=== PATIENT | female | born 1970 | race Caucasian/White ===

== ENCOUNTER 2017-04-23 07:45 | Day surgery (SDC) | payer BC ==
[~2017-04-23] VITALS: Ht 175.3 cm; Wt 84.5 kg
[~2017-04-23 07:45] MED LIST: ACEBUTCAFT PO; ADVIL100 MG PO; ALBU.083IS; ALBU90OI; ALBU90OI6; ALBU90OI6 INH; ALBUIS; ALBUTEROL; ASPI81CH; ASPI81EC; AZIT500 PO; BENZ100A PO; Bactrim Ds Tab1 EACH PO; CIPR250 PO; CIPR500 PO; CIPR750 PO; CLON1; CROMOI; DIAZ10 PO; DIVA500EC; FENO67; FISH1000 PO; FLUSAL1005 IH; FLUSAL5005; FLUT44OIA; FLUV50 PO; FOLI1; GEMF600; HYDACE5 PO; HYDR-86; IBUP800; IBUP800 PO; IPRATROPIUM; LAMO100; LAMO100 PO; LAMO25; LISI10; LOVA20; LOVA40; METF500; METPRE4DP PO; METR250; METR500 PO; MOMENI; MONT10T; MONT10T PO; MULVITMINF PO; NAPR550 PO; OXYACE5T PO; OXYACE7.5T PO; OXYC1TAB11; PHENA200 PO; PRED10; PROCODE120 PO; PROM50S PR; RANI150 PO; RXOXYACE PO; RXPHEN200 PO; RXPROCODSY PO; RXSULTRIDS PO; SULTRIDS PO; SUMA25 PO; TAMS.4ER PO; TOPI100 PO; VYTORIN; Ventolin/Prove6.7 GM; ZOLP10; ZOLP5 PO
== END 2017-04-23 10:34 | disposition home or self-care (01) ==
LOC: ORSCSDS 07:45
PROVIDERS: Internal Medicine Gastroenterology
PROC: 0DBN8ZX Excision of Sigmoid Colon, Via Natural or Artificial Opening Endoscopic, Diagnostic (ICD-10-PCS; principal; 2017-04-23 09:00)
PROC: 0DBP8ZX Excision of Rectum, Via Natural or Artificial Opening Endoscopic, Diagnostic (ICD-10-PCS; principal; 2017-04-23 09:00)
DX: R10.32 Left lower quadrant pain (principal); D12.5 Benign neoplasm of sigmoid colon; K62.1 Rectal polyp; K57.30 Diverticulosis of large intestine without perforation or abscess without bleeding; K64.8 Other hemorrhoids; K59.00 Constipation, unspecified; Z83.71 Family history of colonic polyps; R11.0 Nausea; F32.9 Major depressive disorder, single episode, unspecified; E11.9 Type 2 diabetes mellitus without complications; J45.909 Unspecified asthma, uncomplicated; F17.210 Nicotine dependence, cigarettes, uncomplicated; Z79.899 Other long term (current) drug therapy
CPT/HCPCS: 88305; J3010

== ENCOUNTER → 2017-08-06 | Outpatient (CLI) | payer BC | END | disposition home or self-care (01) | LOC: LAB 13:56 → LAB SHORT 13:56 | DX: L08.9 Local infection of the skin and subcutaneous tissue, unspecified (principal) | CPT/HCPCS: 87070; 87205 ==

== ENCOUNTER 2018-12-03 10:52 | Emergency (ER) | payer BC ==
[~2018-12-03] VITALS: Ht 175.3 cm; Wt 88.5 kg
[2018-12-03 11:42] LABS: BASOPHILS ABSOLUTE AUTO 0.05 K/mm3 (0.00-0.23); BASOPHILS PERCENT AUTO 1 % (0-2); EOSINOPHILS ABSOLUTE AUTO 0.24 K/mm3 (0.00-0.68); EOSINOPHILS PERCENT AUTO 2 % (0-6); Hematocrit 45.7 % (33.0-51.0); Hemoglobin 15.4 g/dL (11.5-16.0); IMMATURE GRAN ABSOLUTE AUTO 0.08 K/mm3 (0.00-0.10); IMMATURE GRAN PERCENT AUTO 1 % (0-1); LYMPHOCYTES ABSOLUTE AUTO 3.07 K/mm3 (0.84-5.20); LYMPHOCYTES PERCENT AUTO 29 % (21-46); MONOCYTES ABSOLUTE AUTO 0.74 K/mm3 (0.16-1.47); MONOCYTES PERCENT AUTO 7 % (4-13); Mean Corpuscular HGB Conc 33.7 g/dL (31.5-36.5); Mean Corpuscular Volume 92 fL (80-100); Mean Platelet Volume 10.2 fL (9.1-12.4); NEUTROPHILS PERCENT AUTO 61 % (41-73); Platelet Count 364 K/mm3 (150-400); RDW Coefficient Variation 12.9 % (11.7-14.2); RDW Standard Deviation 43.1 fL (35.1-46.3); Red Blood Cell Count 4.96 M/mm3 (3.80-5.20); White Blood Cell Count 10.68 K/mm3 (4.00-11.30)
[2018-12-03 11:56] LABS: Source, Urine Voided
[2018-12-03 11:57] LABS: Alanine Aminotransfer (ALT/SGP 28 U/L (12-78); Albumin, Blood 3.7 g/dL (3.4-5.0); Albumin/Globulin Ratio 0.9 (0.8-1.8); Alk Phos 82 U/L (50-136); Anion Gap 8 mmol/L (6-16); Aspartate Aminotrans (AST/SGOT 17 U/L (12-37); Beta HCG, Quantitative, Serum <1 mIU/mL (0-3); Bilirubin, Total 0.2 mg/dL (0.1-1.0); Blood Urea Nitrogen 11 mg/dL (8-24); CO2, Blood 22 mmol/L (21-32); Calcium, Blood 9.2 mg/dL (8.5-10.1); Chloride, Blood 109 mmol/L (98-108); Creatinine, Blood 0.78 mg/dL (0.40-1.00); Glomerular Filtration Rate >60 (60-); Glucose, Blood 95 mg/dL (70-99); Potassium, Blood 3.9 mmol/L (3.5-5.5); Sodium, Blood 139 mmol/L (136-145); Total Protein, Blood 7.7 g/dL (6.4-8.2)
[2018-12-03 12:02] LABS: Bilirubin, Urine Neg (Neg); Blood, Urine Neg (Neg); Glucose Qualitative, Urine Neg (Neg); Ketones, Urine Neg (Neg); Leukocyte Esterase, Urine Neg (Neg); Nitrite, Urine Neg (Neg); Protein, Urine Neg (Neg); Urobilinogen, Urine NORM (Normal)
[2018-12-03 12:03] LABS: Appearance, Urine Clear (Clear); Color, Urine Yellow (P-Yellow)
[2018-12-03] MEDS ORDERED: IBUP400 PO (12:46)
[2018-12-03] MEDS ORDERED: Percocet 5-3251 EACH PO (12:46)
[2018-12-03] MEDS ORDERED: Zofran8 MG PO (12:46)
[2018-12-31] MEDS ORDERED: AIMOVIG AU70 MG/1 ML SQ (01:24)
[2018-12-31] MEDS ORDERED: SYNTHROID75 MC1 (01:25)
[2018-12-31] MEDS ORDERED: Esgic Tablet1 EACH PO (01:44)
[2018-12-31] MEDS ORDERED: Zantac150 MG PO (01:45)
[2018-12-31] MEDS ORDERED: PROGESTERONE100 MG PO (01:51)
[2019-01-01] MEDS ORDERED: ALBU2.5V5 INH (11:44)
[2019-01-01] MEDS ORDERED: Milk Of Ma400 MG/5 M PO (11:50)
[2019-01-01] MEDS ORDERED: DOCU100 PO (11:51)
[2019-01-01] MEDS ORDERED: Percocet 5-3251 EACH PO (11:53)
[2019-01-01] MEDS ORDERED: PROM25 PO (11:55)
[2019-01-01] MEDS ORDERED: IBUP800 PO (11:56)
[2019-01-01] MEDS ORDERED: FOLI1 PO (12:00)
== END 2018-12-03 13:09 | disposition home or self-care (01) ==
LOC: ER 10:52
PROVIDERS: Emergency Medicine
DX: N83.202 Unspecified ovarian cyst, left side (principal); Z88.0 Allergy status to penicillin; Z88.8 Allergy status to other drugs, medicaments and biological substances; Z79.899 Other long term (current) drug therapy; Z79.891 Long term (current) use of opiate analgesic; G43.909 Migraine, unspecified, not intractable, without status migrainosus; F17.200 Nicotine dependence, unspecified, uncomplicated
CPT/HCPCS: 76830; 76856; 80053; 81003; 84702; 85025; 96361; 96374; 96375; 99284-25; J1170; J1885; J2405; J7120

== ENCOUNTER 2019-02-23 20:25 | Emergency (ER) | payer BC ==
[~2019-02-23] VITALS: Ht 175.3 cm; Wt 86.2 kg
[~2019-02-23 20:25] MED LIST changes: +AIMOVIG AU70 MG/1 ML SQ; +ALBU2.5V5 INH; +DOCU100 PO; +Esgic Tablet1 EACH PO; +FOLI1 PO; +IBUP400 PO; +Milk Of Ma400 MG/5 M PO; +PROGESTERONE100 MG PO; +PROM25 PO; +Percocet 5-3251 EACH PO; +SYNTHROID75 MC1; +Zantac150 MG PO; +Zofran8 MG PO
[2019-02-23 21:00] LABS: BASOPHILS ABSOLUTE AUTO 0.06 K/mm3 (0.00-0.23); BASOPHILS PERCENT AUTO 1 % (0-2); EOSINOPHILS ABSOLUTE AUTO 0.28 K/mm3 (0.00-0.68); EOSINOPHILS PERCENT AUTO 3 % (0-6); Hematocrit 42.9 % (33.0-51.0); Hemoglobin 14.1 g/dL (11.5-16.0); IMMATURE GRAN ABSOLUTE AUTO 0.04 K/mm3 (0.00-0.10); IMMATURE GRAN PERCENT AUTO 0 % (0-1); LYMPHOCYTES ABSOLUTE AUTO 3.78 K/mm3 (0.84-5.20); LYMPHOCYTES PERCENT AUTO 34 % (21-46); MONOCYTES ABSOLUTE AUTO 0.76 K/mm3 (0.16-1.47); MONOCYTES PERCENT AUTO 7 % (4-13); Mean Corpuscular HGB 31.1 pg (26.0-34.0); Mean Corpuscular HGB Conc 32.9 g/dL (31.5-36.5); Mean Corpuscular Volume 95 fL (80-100); Mean Platelet Volume 10.3 fL (9.1-12.4); NEUTROPHILS ABSOLUTE AUTO 6.31 K/mm3 (1.96-9.15); NEUTROPHILS PERCENT AUTO 56 % (41-73); Platelet Count 343 K/mm3 (150-400); RDW Coefficient Variation 12.8 % (11.7-14.2); RDW Standard Deviation 44.7 fL (35.1-46.3); Red Blood Cell Count 4.53 M/mm3 (3.80-5.20); White Blood Cell Count 11.23 K/mm3 (4.00-11.30)
[2019-02-23 21:20] LABS: Alanine Aminotransfer (ALT/SGP 24 U/L (12-78); Albumin, Blood 3.6 g/dL (3.4-5.0); Alk Phos 84 U/L (50-136); Anion Gap 5 mmol/L (6-16); Aspartate Aminotrans (AST/SGOT 15 U/L (12-37); Bilirubin, Total 0.1 mg/dL (0.1-1.0); Blood Urea Nitrogen 16 mg/dL (8-24); Bun/Creatinine Ratio 18.7 (12.0-20.0); CO2, Blood 24 mmol/L (21-32); Calcium, Blood 8.8 mg/dL (8.5-10.1); Chloride, Blood 113 mmol/L (98-108); Creatinine, Blood 0.86 mg/dL (0.40-1.00); Globulin, Blood 3.6 g/dL (2.2-4.0); Glomerular Filtration Rate >60 (60-); Glucose, Blood 107 mg/dL (70-99); Potassium, Blood 3.6 mmol/L (3.5-5.5); Sodium, Blood 142 mmol/L (136-145); Total Protein, Blood 7.2 g/dL (6.4-8.2); Troponin I <0.015 ng/mL (0.000-0.040)
[2019-02-23] MEDS ORDERED: CLIMARA1 EACH (21:25)
[2019-02-23] MEDS ORDERED: CYAN500 PO (21:25)
[2019-02-23] MEDS ORDERED: ERGO400 PO (21:25)
== END 2019-02-23 23:44 | disposition home or self-care (01) ==
LOC: ER 20:25
PROVIDERS: Physician Assistant
DX: R07.9 Chest pain, unspecified (principal); F17.200 Nicotine dependence, unspecified, uncomplicated; Z85.41 Personal history of malignant neoplasm of cervix uteri; Z88.0 Allergy status to penicillin; Z88.8 Allergy status to other drugs, medicaments and biological substances; Z79.899 Other long term (current) drug therapy
CPT/HCPCS: 36415; 71046; 80053; 84484; 85025; 85379; 93005; 93010; 99285-25

== ENCOUNTER 2019-06-02 09:06 | Day surgery (SDC) | payer BC ==
[~2019-06-02] VITALS: Ht 175.3 cm; Wt 88.2 kg
[~2019-06-02 09:06] MED LIST changes: +CLIMARA1 EACH; +CYAN500 PO; +ERGO400 PO
--- NOTE | 2019-06-02 09:39 | NUR ---
06/02/19 0939 Carmelina Stafford 1 TRY RIGHT WRIST NO FLASH 2 TRY HAND RIGHT GOOD
== END 2019-06-02 10:27 | disposition home or self-care (01) ==
LOC: ORSCSDS 09:06
PROVIDERS: Internal Medicine Gastroenterology
PROC: 0DB58ZX Excision of Esophagus, Via Natural or Artificial Opening Endoscopic, Diagnostic (ICD-10-PCS; principal; 2019-06-02 10:30)
PROC: 0DB68ZX Excision of Stomach, Via Natural or Artificial Opening Endoscopic, Diagnostic (ICD-10-PCS; principal; 2019-06-02 10:30)
DX: K21.0 Gastro-esophageal reflux disease with esophagitis (principal); E03.9 Hypothyroidism, unspecified; E11.9 Type 2 diabetes mellitus without complications; J45.909 Unspecified asthma, uncomplicated; E78.5 Hyperlipidemia, unspecified; F33.9 Major depressive disorder, recurrent, unspecified; G40.909 Epilepsy, unspecified, not intractable, without status epilepticus; Z87.891 Personal history of nicotine dependence; Z79.899 Other long term (current) drug therapy
CPT/HCPCS: 82947; 88305; 88342; J2704; J7120

== ENCOUNTER 2023-10-10 13:00 | Day surgery (SDC) | payer BC ==
[~2023-10-10] VITALS: Ht 175.3 cm; Wt 84.8 kg
[~2023-10-10 13:00] MED LIST changes: +FAMO40 PO; +Lactated Ringer's 1,000 ML IV ONE; +SUCR1 PO
[2023-10-10] MEDS ORDERED: AIMOVIG AU140 MG/1 M (13:59)
[2023-10-10] MEDS ORDERED: ATOR40TA (13:59)
[2023-10-10] MEDS ORDERED: ELFOLATE15 MG (13:59)
[2023-10-10] MEDS ORDERED: OMEP20ER (14:00)
[2023-10-10] MEDS ORDERED: NIFE10 (14:00)
[2023-10-10] MEDS ORDERED: Lactated Ringer's 1,000 ML IV ONE (14:12)
[2023-10-10] MEDS ORDERED: propofoL 50 ML IV ONE (14:17)
[2023-10-10 15:27] VITALS: BP 140/88
== END 2023-10-10 15:44 | disposition home or self-care (01) ==
LOC: ORSCSDS 13:00
PROVIDERS: Specialist
PROC: 0DB58ZX Excision of Esophagus, Via Natural or Artificial Opening Endoscopic, Diagnostic (ICD-10-PCS; principal; 2023-10-10 14:15)
PROC: 0DB98ZX Excision of Duodenum, Via Natural or Artificial Opening Endoscopic, Diagnostic (ICD-10-PCS; principal; 2023-10-10 14:15)
PROC: 0DBP8ZX Excision of Rectum, Via Natural or Artificial Opening Endoscopic, Diagnostic (ICD-10-PCS; principal; 2023-10-10 14:15)
PROC: 0DB78ZX Excision of Stomach, Pylorus, Via Natural or Artificial Opening Endoscopic, Diagnostic (ICD-10-PCS; principal; 2023-10-10 14:15)
DX: R10.32 Left lower quadrant pain (principal); R13.10 Dysphagia, unspecified; R15.0 Incomplete defecation; Z86.010 Personal history of colon polyps; K62.1 Rectal polyp; K29.70 Gastritis, unspecified, without bleeding; J45.909 Unspecified asthma, uncomplicated; F17.210 Nicotine dependence, cigarettes, uncomplicated; K21.9 Gastro-esophageal reflux disease without esophagitis; K44.9 Diaphragmatic hernia without obstruction or gangrene; K57.30 Diverticulosis of large intestine without perforation or abscess without bleeding; E11.9 Type 2 diabetes mellitus without complications; E03.9 Hypothyroidism, unspecified; G40.909 Epilepsy, unspecified, not intractable, without status epilepticus; Z79.899 Other long term (current) drug therapy
CPT/HCPCS: 88305; 88342; C1769; J2704; J7120

== ENCOUNTER 2024-09-07 10:50 | Emergency (ER) | payer BC ==
[~2024-09-07] VITALS: Ht 175.3 cm; Wt 85.7 kg
[~2024-09-07 10:50] MED LIST changes: +AIMOVIG AU140 MG/1 M; +ATOR40TA; +ELFOLATE15 MG; -Lactated Ringer's 1,000 ML IV ONE; +NIFE10; +OMEP20ER
[2024-09-07] MEDS ORDERED: NS 1,000 ML IV SCH (11:05)
[2024-09-07] MEDS ORDERED: Ondansetron HCl 2 MG / ML 2ML Vial IV ONE (11:05)
[2024-09-07] MEDS ORDERED: Morphine Sulfate 4 MG/1 ML Injection IV ONE ×2 (11:05→11:50)
[2024-09-07 11:15] LABS: BASOPHILS ABSOLUTE AUTO 0.05 K/mm3 (0.00-0.23); BASOPHILS PERCENT AUTO 0 % (0-2); EOSINOPHILS ABSOLUTE AUTO 0.26 K/mm3 (0.00-0.68); EOSINOPHILS PERCENT AUTO 2 % (0-6); Hematocrit 47.4 % (33.0-51.0); Hemoglobin 16.1 g/dL (11.5-16.0); IMMATURE GRAN ABSOLUTE AUTO 0.07 K/mm3 (0.00-0.10); IMMATURE GRAN PERCENT AUTO 1 % (0-1); LYMPHOCYTES ABSOLUTE AUTO 2.62 K/mm3 (0.84-5.20); LYMPHOCYTES PERCENT AUTO 20 % (21-46); MONOCYTES ABSOLUTE AUTO 1.04 K/mm3 (0.16-1.47); MONOCYTES PERCENT AUTO 8 % (4-13); Mean Corpuscular HGB 31.4 pg (26.0-34.0); Mean Corpuscular Volume 93 fL (80-100); Mean Platelet Volume 9.8 fL (9.1-12.4); NEUTROPHILS ABSOLUTE AUTO 8.82 K/mm3 (1.96-9.15); NEUTROPHILS PERCENT AUTO 69 % (41-73); Platelet Count 380 K/mm3 (150-400); RDW Coefficient Variation 13.9 % (11.7-14.2); RDW Standard Deviation 46.9 fL (35.1-46.3); Red Blood Cell Count 5.12 M/mm3 (3.80-5.20); White Blood Cell Count 12.86 K/mm3 (4.00-11.30)
[2024-09-07 11:43] LABS: Albumin, Blood 3.6 g/dL (3.4-5.0); Albumin/Globulin Ratio 0.9 (0.8-1.8); Bilirubin, Total 0.8 mg/dL (0.1-1.0); Bun/Creatinine Ratio 12.5 (12.0-20.0); Calcium, Blood 9.4 mg/dL (8.5-10.1); Creatinine, Blood 0.88 mg/dL (0.40-1.00); Globulin, Blood 4.1 g/dL (2.2-4.0); Potassium, Blood 3.7 mmol/L (3.5-5.5); Total Protein, Blood 7.7 g/dL (6.4-8.2)
[2024-09-07] MEDS ORDERED: OxyCODONE 5 mg/Acetamin 325 mg TABLET PO ONE (13:25)
[2024-09-07 13:29] VITALS: BP 118/64
[2024-09-07] MEDS ORDERED: MetroNIDAZOLE 500 MG Tab PO ONE (13:50)
[2024-09-07] MEDS ORDERED: Ciprofloxacin 500 MG Tab PO ONE (13:50)
[2024-09-07] MEDS ORDERED: PROBIOTIC1 EA13 PO (13:58)
[2024-09-07] MEDS ORDERED: Percocet 5-3251 EACH PO (13:58)
[2024-09-07] MEDS ORDERED: METR500 PO (13:58)
[2024-09-07] MEDS ORDERED: CIPR500 PO (13:58)
== END 2024-09-07 14:08 | disposition home or self-care (01) ==
LOC: ER 10:50
PROVIDERS: Emergency Medicine
DX: K57.33 Diverticulitis of large intestine without perforation or abscess with bleeding (principal); E11.9 Type 2 diabetes mellitus without complications; J45.909 Unspecified asthma, uncomplicated; G40.909 Epilepsy, unspecified, not intractable, without status epilepticus; G43.909 Migraine, unspecified, not intractable, without status migrainosus; F17.210 Nicotine dependence, cigarettes, uncomplicated; Z90.49 Acquired absence of other specified parts of digestive tract; Z88.0 Allergy status to penicillin; Z88.8 Allergy status to other drugs, medicaments and biological substances; Z79.890 Hormone replacement therapy; Z79.899 Other long term (current) drug therapy
CPT/HCPCS: 74177; 80053; 85025; 96361; 96374-59; 96375; 96376; 99284-25; A9270; J2270; J2405; J7030; Q9967

== ENCOUNTER 2024-12-08 11:54 | Emergency (ER) | payer BC ==
[~2024-12-08] VITALS: Ht 175.3 cm; Wt 86.2 kg
[~2024-12-08 11:54] MED LIST changes: +PROBIOTIC1 EA13 PO
[2024-12-08 12:18] VITALS: BP 146/73
[2024-12-08] MEDS ORDERED: Ondansetron HCl 2 MG / ML 2ML Vial IV ONE (12:35)
[2024-12-08] MEDS ORDERED: Morphine Sulfate 4 MG/1 ML Injection IV ONE (12:35)
[2024-12-08] MEDS ORDERED: NS 1,000 ML IV SCH (12:35)
[2024-12-08 12:53] LABS: BASOPHILS ABSOLUTE AUTO 0.07 K/mm3 (0.00-0.23); BASOPHILS PERCENT AUTO 1 % (0-2); EOSINOPHILS ABSOLUTE AUTO 0.33 K/mm3 (0.00-0.68); EOSINOPHILS PERCENT AUTO 3 % (0-6); Hematocrit 45.0 % (33.0-51.0); Hemoglobin 15.2 g/dL (11.5-16.0); IMMATURE GRAN ABSOLUTE AUTO 0.05 K/mm3 (0.00-0.10); IMMATURE GRAN PERCENT AUTO 0 % (0-1); LYMPHOCYTES ABSOLUTE AUTO 3.09 K/mm3 (0.84-5.20); LYMPHOCYTES PERCENT AUTO 27 % (21-46); MONOCYTES ABSOLUTE AUTO 0.74 K/mm3 (0.16-1.47); MONOCYTES PERCENT AUTO 6 % (4-13); Mean Corpuscular HGB Conc 33.8 g/dL (31.5-36.5); Mean Corpuscular Volume 94 fL (80-100); NEUTROPHILS ABSOLUTE AUTO 7.29 K/mm3 (1.96-9.15); NEUTROPHILS PERCENT AUTO 63 % (41-73); NRBC ABSOLUTE 0.00 K/mm3 (0.00-0.02); NRBC Auto 0.0 /100 WBC (0.0-0.2); Platelet Count 328 K/mm3 (150-400); RDW Coefficient Variation 12.0 % (11.7-14.2); RDW Standard Deviation 41.4 fL (35.1-46.3)
[2024-12-08 13:27] LABS: Alanine Aminotransfer (ALT/SGP 29.0 U/L (12-78); Albumin, Blood 3.2 g/dL (3.4-5.0); Albumin/Globulin Ratio 0.8 (0.8-1.8); Anion Gap 9.0 mmol/L (3-11); Aspartate Aminotrans (AST/SGOT 27.0 U/L (12-37); Bilirubin, Total 0.5 mg/dL (0.1-1.0); Blood Urea Nitrogen 15.0 mg/dL (8-24); CO2, Blood 25.0 mmol/L (21-32); Calcium, Blood 8.9 mg/dL (8.5-10.1); Chloride, Blood 106.0 mmol/L (98-108); Creatinine, Blood 0.82 mg/dL (0.40-1.00); Globulin, Blood 4.1 g/dL (2.2-4.0); Glucose, Blood 155.0 mg/dL (70-99); Potassium, Blood 4.1 mmol/L (3.5-5.5); Sodium, Blood 136.0 mmol/L (136-145); Total Protein, Blood 7.3 g/dL (6.4-8.2)
[2024-12-08 14:14] LABS: Source, Urine Clean Catch
[2024-12-08 14:22] LABS: Bilirubin, Urine Neg (Neg); Color, Urine Yellow (P-Yellow); Glucose Qualitative, Urine Neg (Neg); Ketones, Urine Neg (Neg); Leukocyte Esterase, Urine Neg (Neg); Protein, Urine Neg (Neg); Specific Gravity, Urine 1.015 (1.003-1.022); Urobilinogen, Urine NORM (Normal)
[2024-12-08] MEDS ORDERED: ACET500 PO (14:49)
== END 2024-12-09 15:20 | disposition home or self-care (01) ==
LOC: ER 11:54
PROVIDERS: Emergency Medicine; Student in an Organized Health Care Education/Training Program
DX: R07.2 Precordial pain (principal); K59.09 Other constipation; J45.909 Unspecified asthma, uncomplicated; E11.9 Type 2 diabetes mellitus without complications; G40.909 Epilepsy, unspecified, not intractable, without status epilepticus; K21.9 Gastro-esophageal reflux disease without esophagitis; F17.210 Nicotine dependence, cigarettes, uncomplicated; Z88.0 Allergy status to penicillin; Z88.8 Allergy status to other drugs, medicaments and biological substances; Z79.890 Hormone replacement therapy; Z79.899 Other long term (current) drug therapy
CPT/HCPCS: 71046; 74177; 80053; 81003; 83690; 83735; 84484; 85025; 93005; 93010; 96374; 96375; 99285-25; J2270; J2405; J7030; Q9967

== ENCOUNTER 2024-12-29 10:22 | Inpatient (IN) | payer BC ==
[2024-12-29] VITALS (14 sets, daily range): BP systolic 103–141; BP diastolic 56–96
[~2024-12-29] VITALS: Ht 175.3 cm; Wt 86.4 kg
[~2024-12-29 10:22] MED LIST changes: +ACET500 PO; +AIMOVIG AU140 MG/1 M SC; -ATOR40TA; +ATOR40TA PO; +CeFAZolin Sodium 2,000 MG in NS 100 ML IV SCH; +FAMO20 PO; +Heparin Sodium,Porcine 5,000 UNIT/0.5 ML SDV SC ONE; +LEVSOD75 PO; +MetroNIDAZOLE 500MG/NS 100 ml 100 ML IV SCH; +NEOM500 PO; -NIFE10; +NIFE10 PO; -OMEP20ER; +OMEP20ER PO; -SYNTHROID75 MC1
[2024-12-29] MEDS ORDERED: Midazolam HCl 1MG / ML 2ML Vial ONE (11:13)
[2024-12-29] MEDS ORDERED: FentaNYL Citrate 50 MCG/ML 2 ML Injection ONE ×2 (11:13→13:55)
[2024-12-29] MEDS ORDERED: Rocuronium Bromide 10 MG/ML 5ML Injection IV ONE ×2 (11:15→13:59)
[2024-12-29] MEDS ORDERED: Ondansetron HCl 2 MG / ML 2ML Vial IV ONE (11:35)
[2024-12-29] MEDS ORDERED: Bupivacaine 0.5% W/EPI 1:200000 SDV 30 ML Vial ONE (12:17)
[2024-12-29] MEDS ORDERED: Bupivacaine 0.25% Epi 1:200000 30 ML Vial ONE (12:43)
[2024-12-29] MEDS ORDERED: FentaNYL Citrate 50 MCG/ML 2 ML Injection IV PRN ×2 (13:10→13:15)
[2024-12-29] MEDS ORDERED: HYDROmorphone HCl/Pf 1MG SYR IV PRN ×3 (13:10→16:10)
[2024-12-29] MEDS ORDERED: Ondansetron HCl 2 MG / ML 2ML Vial IV PRN ×2 (13:10→16:10)
[2024-12-29] MEDS ORDERED: Albuterol 2.5 MG/3 ML VIAL INH PRN (13:10)
[2024-12-29] MEDS ORDERED: Labetalol HCL 5 MG/ML 4ML Injection (Single Dose) ONE (13:55)
[2024-12-29] MEDS ORDERED: HYDROmorphone HCl/Pf 1MG SYR ONE ×4 (15:01→16:37)
[2024-12-29] MEDS ORDERED: Sugammadex Sodium 200 MG/2ML SDV (100 MG/ML) ONE (15:06)
[2024-12-29] MEDS ORDERED: Ketorolac Tromethamine 30mg Vial ONE ×2 (15:37→15:48)
[2024-12-29] MEDS ORDERED: Glycopyrrolate 0.2 MG/ML 5ML VIAL ONE (15:48)
[2024-12-29] MEDS ORDERED: Prochlorperazine Edisylate 10 mg Vial IV PRN (16:25)
--- NOTE | 2024-12-29 16:40 | NUR ---
TRANSFER NOTE AFTER RECEIVING REPORT FROM WOOD INSPECTOR, PATIENT TRANSFERRED TO UNIT VIA RNEY AT APPROX 1620. PATIENT LETHARGIC - EASILY AROUSABLE W/ VERBAL STIMULI BEFORE FALLING BACK TO SLEEP. VSS. ON 3L VIA NC - SATs >90%. CONTINUOUS PULSE OX IN PLACE. S/P LAP SIGMOID COLECTOMY. PAIN TOLERABLE AT THIS TIME. X4 LAP SITES W/ WOUND GLUE C/D/I. DENIES N/V - IVF INFUSING PER EMAR. CLEAR LIQUID DIET - WATER AND JELLO WITHIN REACH. BAUMAN CATHETER IN PLACE - DRAINING YELLOW URINE TO GRAVITY. CALL LIGHT IN REACH. DAUGHTER AT BEDSIDE.
[2024-12-30 03:55] VITALS: BP 100/59
[2024-12-30 06:55] LABS: Hematocrit 39.5 % (33.0-51.0); Hemoglobin 13.5 g/dL (11.5-16.0); Mean Corpuscular HGB Conc 34.2 g/dL (31.5-36.5); Mean Corpuscular Volume 93 fL (80-100); NRBC ABSOLUTE 0.00 K/mm3 (0.00-0.02); NRBC Auto 0.0 /100 WBC (0.0-0.2); Platelet Count 322 K/mm3 (150-400); RDW Coefficient Variation 12.3 % (11.7-14.2); RDW Standard Deviation 42.5 fL (35.1-46.3)
[2024-12-30 07:05] LABS: Anion Gap 9.0 mmol/L (3-11); Blood Urea Nitrogen 13.0 mg/dL (8-24); CO2, Blood 25.0 mmol/L (21-32); Calcium, Blood 8.8 mg/dL (8.5-10.1); Chloride, Blood 106.0 mmol/L (98-108); Creatinine, Blood 0.94 mg/dL (0.40-1.00); Glucose, Blood 120.0 mg/dL (70-99); Magnesium, Blood 2.0 mg/dL (1.6-2.4); Potassium, Blood 3.3 mmol/L (3.5-5.5); Sodium, Blood 137.0 mmol/L (136-145)
[2024-12-30 07:14] VITALS: BP 105/67
--- NOTE | 2024-12-30 07:27 | NUR ---
SHIFT SUMMARY POD 1 SIGMOID COLECTOMY, LAP SITES CDI. BAUMAN REMOVED PER ORDERS THIS MORNING, AWAITING FIRST VOID. MARK ANTHONY SIPS OF CL. EPISODES OF BRADYCARDIA IN THE 40'S NOTED T/O NIGHT, PROVIDER AWARE. PT VERY PAINFUL, PAIN AT TOLERABLE LEVEL INTERMITTENTLY PER EMAR AND AMBULATION. PT IS A/O AND ABLE TO MAKE NEEDS KNOWN. IS CURRENTLY UP IN ROOM VISITING WITH FRIEND. HAS CALL LIGHT IN REACH. BESIDE REPORT PROVIDED TO COMING RN.
[2024-12-30] MEDS ORDERED: Enoxaparin 40 MG/0.4 ML SYR SC SCH (09:00)
[2024-12-30 14:30] VITALS: BP 126/63
--- NOTE | 2024-12-30 17:42 | NUR ---
SHIFT SUMMARY. POD 1 LAP SIGMOID COLECTOMY. PT IS A/OX4. REPORTS OF NAUSEA THIS AM, MEDICATED PER EMAR. NO NAUSEA SINCE. PT IS AMBULATING SBA W/ FWW FOR WEAKNESS/PAIN. PT CALLS APPROPRIATELY FOR PAIN, MEDICATED PER EMAR. PT TOLERATING REGULAR DIET. PT NOT PASSING GAS, VOIDING WELL. CALL LIGHT IN REACH ABLE TO MAKE NEEDS KNOWN.
--- NOTE | 2024-12-31 00:48 | NUR ---
TRANSFER OF CARE AMY Aguilar RN TO ASSUME CARE. AOX4. S/P COLECTOMY, DENIES N/V. REPORTS PASSING MIN FLATUS. MARK ANTHONY REG DIET. REPORTS INCREASED ABD PAIN, MEDICATED PER EMAR ORDERS. PT UP TO AMBULATE HALLS. CALL LIGHT IN REACH
[2024-12-31 04:55] VITALS: BP 117/66
--- NOTE | 2024-12-31 06:27 | NUR ---
SHIFT SUMMARY NO ACUTE CHANGES T/O NIGHT. PAIN MANAGED WITH PO PER EMAR AND AMBULATION. IVF INFUSING PER ORDERS. MARK ANTHONY PO, DENIES N/T. IS A/OX4 WITH VSS. REF SCDS. ABD INCISIONS CDI. DRESSING TO GLUTEAL FOLD CDI. HAS CALL LIGHT IN REACH AND ABLE TO MAKE NEEDS KNOWN. WILL GIVE REPORT TO ONCOMING RN.
[2024-12-31 07:39] VITALS: BP 115/67
[2024-12-31 07:40] VITALS: BP 115/67
[2024-12-31] MEDS ORDERED: Simethicone 40 MG/0.6 ML 30ML BTL PO ONE (09:30)
[2024-12-31 13:49] VITALS: BP 131/73
[2024-12-31 15:36] VITALS: BP 109/53
--- NOTE | 2024-12-31 16:53 | NUR ---
SHIFT SUMMARY POD 2 COLECTOMY PT REPORTS PASSING SOME GAS, AMBULATING WELL IN HALLWAYS. REMAINS VERY UNCOMFORTABLE, BUT STATES TOLERABLE PER EMAR. TOLERATING DIET WELL. TOOK A SHOWER TODAY.
[2025-01-01 05:40] LABS: BASOPHILS ABSOLUTE AUTO 0.04 K/mm3 (0.00-0.23); BASOPHILS PERCENT AUTO 1 % (0-2); EOSINOPHILS ABSOLUTE AUTO 0.48 K/mm3 (0.00-0.68); EOSINOPHILS PERCENT AUTO 7 % (0-6); Hematocrit 40.1 % (33.0-51.0); Hemoglobin 13.2 g/dL (11.5-16.0); IMMATURE GRAN ABSOLUTE AUTO 0.03 K/mm3 (0.00-0.10); IMMATURE GRAN PERCENT AUTO 0 % (0-1); LYMPHOCYTES ABSOLUTE AUTO 2.42 K/mm3 (0.84-5.20); LYMPHOCYTES PERCENT AUTO 34 % (21-46); MONOCYTES ABSOLUTE AUTO 0.69 K/mm3 (0.16-1.47); MONOCYTES PERCENT AUTO 10 % (4-13); Mean Corpuscular HGB Conc 32.9 g/dL (31.5-36.5); Mean Corpuscular Volume 94 fL (80-100); NEUTROPHILS ABSOLUTE AUTO 3.51 K/mm3 (1.96-9.15); NEUTROPHILS PERCENT AUTO 49 % (41-73); NRBC ABSOLUTE 0.00 K/mm3 (0.00-0.02); NRBC Auto 0.0 /100 WBC (0.0-0.2); Platelet Count 287 K/mm3 (150-400); RDW Coefficient Variation 12.2 % (11.7-14.2); RDW Standard Deviation 42.3 fL (35.1-46.3)
[2025-01-01 06:05] LABS: Anion Gap 8.0 mmol/L (3-11); Blood Urea Nitrogen 12.0 mg/dL (8-24); CO2, Blood 27.0 mmol/L (21-32); Calcium, Blood 8.9 mg/dL (8.5-10.1); Chloride, Blood 108.0 mmol/L (98-108); Creatinine, Blood 1.08 mg/dL (0.40-1.00); Glucose, Blood 125.0 mg/dL (70-99); Magnesium, Blood 2.1 mg/dL (1.6-2.4); Phosphorus, Blood 4.0 mg/dL (2.5-4.9); Potassium, Blood 3.5 mmol/L (3.5-5.5); Sodium, Blood 139.0 mmol/L (136-145)
[2025-01-01 06:24] VITALS: BP 121/84
--- NOTE | 2025-01-01 07:11 | NUR ---
SHIFT SUMMARY POD 3 SIGMOID COLECTOMY. ABD INCISIONS CDI. PAIN HAS IMPROVED PER EMAR AND AMBULATION IN HALLWAYS. MARK ANTHONY CL, DENIES N/V. REPORTS PASSING MORE FLATUS T/O NIGHT. DRESSING TO GLUTEAL FOLD REPLACED. BORDERED FOAM FOR APPLIED TO COCCYX FOR COMFORT. REDNESS DECREASED IN RIGHT FA R/T PREVIOUS INFILTRATED IV, STILL SOME REDNESS NOTED. WARM COMPRESSED AND ELEVATED DURING NIGHT. IV TO L FA PATENT/SL. PT CURRENTLY RESTING IN BED ON PHONE WITH CALL LIGHT IN REACH. DENIES NEEDS. REPORT GIVEN TO DAY RN.
[2025-01-01 07:30] VITALS: BP 103/72
[2025-01-01 15:02] VITALS: BP 126/56
--- NOTE | 2025-01-01 16:07 | NUR ---
SHIFT SUMMARY POD3 ROBOTIC SIGMOID COLECTOMY PT IS A/OX4, VSS. PT IS TOLERATING FULL LIQUID DIET. PAIN MANAGED PER EMAR. PT REPORTS NO N/V. IND IN ROOM, HAS AMBULATED HALLS MULTIPLE TIMES TODAY. PASSING FLATUS. NO BM. VOIDING WELL. PLAN IS TO ADVANCE DIET SLOWLY. CALL LIGHT IN REACH, BED IN LOWEST POSITION.
--- NOTE | 2025-01-01 18:05 | NUR ---
NO ACUTE CHANGES SINCE NOTE
[2025-01-01 19:59] VITALS: BP 124/72
--- NOTE | 2025-01-02 00:30 | NUR ---
PAIN/ANXIETY APPROX 2329 [employer] CHIE[employer] CREATIVE OFFICER INFORMED THIS NURSE PT HAD ASKED FOR PAIN MEDS AROUND 2229 & SHE FORGOT TO INFORM ME. WENT TO MEDICATE PT AT 2331 & SHE WAS TEARFUL, ROCKING, BREATHING RAPID, YELLING "HOW COULD SHE FUCKING FORGET?". PT APPEARED VERY WORKED UP. PT STATING PAIN IS THE WORSE SHE HAS EVER HAD. 10/ PAIN TO ABD. WHEN ASKED IF PAIN IS WORSE THAN SHE HAS FELT PREVIOUSLY PT DENIES, PT EVEN REPORTS PASSING GAS 1x WHILE USING RESTROOM TONIGHT. PT STATES SHE HAS NEEDED TO TAKE PRN ATIVAN FOR ANXIETY IN THE PAST. INFORMED DR FIERRO & HE ORDERED 1x DOSE 1MG PO ATIVAN.
[2025-01-02 03:40] VITALS: BP 99/67
--- NOTE | 2025-01-02 06:35 | NUR ---
SHIFT SUMMARY POD 4-LAP COLECTOMY. LAP SITES C/D/I. TOLERATING FULL LIQUIDS, DENIES N/V. HAS REPORTED PASSING GAS 2x THIS SHIFT. HYPOACTIVE BT. DENIES BM. REPORTS -01/29 RLQ ABD PAIN. STATES PAIN RELIEF W/SCHEDULED MEDS. UP AMBULATING HALLS MULTIPLE x. CALL LIGHT IN REACH & PT ABLE TO MAKE NEEDS KNOWN.
[2025-01-02 07:35] VITALS: BP 108/73
[2025-01-02 14:41] VITALS: BP 128/81
--- NOTE | 2025-01-02 15:34 | NUR ---
PT HAS BEEN IN A "DEPRESSED" MOOD. ASKS IF SHE CAN GO OUTSIDE FOR A WHILE. THIS RN TOOK PT OUTSIDE TO SIT AND TALK. PT ASKING IF SHE CAN TRY SOME REGULAR FOOD. MD CONTACTED AND DIET ADVANCED. PT CAUTIONED TO EAT SLOWLY.
--- NOTE | 2025-01-02 16:14 | NUR ---
SHIFT SUMMARY PT IS A/OX4, VSS. PT HAS BEEN IN "DEPRESSED MOOD TODAY" SEE SILVIA RN NOTE. PAIN MANAGED PER EMAR. PT HAS BEEN IND IN ROOM AND AMBULATING HALLWAYS. PT IS TOLERATING FULL LIQUID DIET, PLAN IS REGULAR DIET FOR DINNER. DENIES N/V. PASSING GAS, NO BM. CALL LIGHT IN REACH, BED IN LOWEST POSITION.
--- NOTE | 2025-01-02 16:34 | NUR ---
assumed care of pt from konstantin ramsay & saulo angel. PT RESTING IN BED, DENIES ANY NEEDS AT THIS TIME. CALL LIGHT IN REACH.
--- NOTE | 2025-01-02 17:50 | NUR ---
NO ACUTE CHANGES SINCE ASSUMING CARE OF PT.
[2025-01-02 19:47] VITALS: BP 111/66
[2025-01-03 02:52] VITALS: BP 128/58
--- NOTE | 2025-01-03 06:08 | NUR ---
SHIFT SUMMARY AOX4. POD 5-LAP COLECTOMY. LAP SITES W/TISSUE ADHESIVE, C/D/I. NO DRAINAGE NOTED. PT TOLERATING REG DIET, NO N/V. DENIES BLOATING REPORTED /10 PAIN TO RLQ ABD & MEDICATED PER EMAR FOR PAIN-PT STATES PAIN RELIEF FROM CURRENT MEDS. PASSING FLATUS. UP AMBULATING HALLS, VOIDING. NO BM THIS SHIFT. CALL LIGHT IN REACH.
[2025-01-03 07:09] VITALS: BP 132/81
[2025-01-03] MEDS ORDERED: OXAYDO5 M1 PO (13:14)
[2025-01-03 13:15] VITALS: BP 127/84
--- NOTE | 2025-01-03 13:23 | NUR ---
DISCHARGING VSS. REVIEWED DC INSTRUCTIONS W/PT; VERBALIZED UNDERSTANDING. SIGNED DC PAPERWORK. AWAITING RETURN OF SISTER FOR RIDE.
--- NOTE | 2025-01-03 13:38 | NUR ---
DISCHARGED PT LEFT UNIT IN WC W/POSSESSIONS AND DC PAPERWORK IN HAND TO RIDE WAITING OUTSIDE.
== END 2025-01-03 13:40 | disposition home or self-care (01) | DRG 330 ==
LOC: SURS 10:22 → MEDS 10:22 → SURS 16:16
PROVIDERS: ADMIT Surgery
PROC: 8E0W4CZ Robotic Assisted Procedure of Trunk Region, Percutaneous Endoscopic Approach (ICD-10-PCS; 2024-12-29)
PROC: 0Y910ZZ Drainage of Left Buttock, Open Approach (ICD-10-PCS; 2024-12-29)
PROC: 0T9B70Z Drainage of Bladder with Drainage Device, Via Natural or Artificial Opening (ICD-10-PCS; 2024-12-29)
PROC: 3E03329 Introduction of Other Anti-infective into Peripheral Vein, Percutaneous Approach (ICD-10-PCS; 2024-12-29)
PROC: 0DTN4ZZ Resection of Sigmoid Colon, Percutaneous Endoscopic Approach (ICD-10-PCS; principal; 2024-12-29 12:30)
DX: K57.32 Diverticulitis of large intestine without perforation or abscess without bleeding (principal); L02.31 Cutaneous abscess of buttock; E11.9 Type 2 diabetes mellitus without complications; G40.909 Epilepsy, unspecified, not intractable, without status epilepticus; G43.909 Migraine, unspecified, not intractable, without status migrainosus; F17.210 Nicotine dependence, cigarettes, uncomplicated; K21.9 Gastro-esophageal reflux disease without esophagitis; F41.9 Anxiety disorder, unspecified; I80.8 Phlebitis and thrombophlebitis of other sites; Z88.0 Allergy status to penicillin; Z88.1 Allergy status to other antibiotic agents; Z88.8 Allergy status to other drugs, medicaments and biological substances; Z85.41 Personal history of malignant neoplasm of cervix uteri; Z90.710 Acquired absence of both cervix and uterus; Z90.79 Acquired absence of other genital organ(s); Z90.722 Acquired absence of ovaries, bilateral; Z79.890 Hormone replacement therapy
CPT/HCPCS: 36415; 80048; 82947; 83735; 84100; 84132; 85025; 85027; 88307; A9270; J0690; J1171; J1644; J1650; J1885; J2250; J2405; J2704; J3010; J7120